=== PATIENT | female | born 1975 | race Two or more races ===

== ENCOUNTER → 2021-06-16 | Outpatient (CLI) | payer MEDICAID ==
[2021-06-16] VITALS (8 sets, daily range): BP systolic 126–136; BP diastolic 77–85
[~2021-06-16] VITALS: Ht 160 cm; Wt 145.1 kg
[~2021-06-16] MED LIST: REGENERON 1200mg/250ml NS 250 ML IV ONE
== END | disposition home or self-care (01) ==
LOC: ER 08:32
PROVIDERS: ATTEND Internal Medicine
DX: U07.1 COVID-19 (principal)
CPT/HCPCS: J7050; M0243; Q0244